=== PATIENT | female | born 1990 | race Caucasian/White ===

== ENCOUNTER → 2022-08-23 | Outpatient (CLI) | payer OTHER ==
[~2022-08-23] MED LIST: IBU600 MG PO; PRENATAL TABLET PO
--- NOTE | 2022-08-23 15:40 | NUR ---
Pt, Mary Barnett, presents to walk-in breast feeding clinic with 1 month old baby boy, Ronan Barnett for a evaluation. Ronan was born on [birth year] and weighed 7# 5.8oz (3340 gms). He was tx to higher level of care on day of . He was discharged home at 3 weeks of age with the feeding plan to alternate with bottle feeding EBM each meal. Current intake by bottle is 75ml, and pt has been able to decrease bottle feeding to TID. She continues to pump more than enough milk. Today Ronan weighs 8# 8.4oz (3866 gms). After Ronan has a gain of 2.9oz (84gms). Pt desires to decrease to bottle feeding to BID, LC feels this is appropriate with weight check next week at clinic. POC: Decrease bottle feeding to BID, increase breast feeding to 6x/day. F/U: Walk-in clinic next week. Questions invited and answered.
== END ==
LOC: LAC 14:06
DX: Z39.1 Encounter for care and examination of lactating mother (principal); Z71.89 Other specified counseling